=== PATIENT | male | born 1950 | race Caucasian/White ===

== ENCOUNTER 2016-07-19 03:33 | Inpatient (IN) | payer OTHER, MEDICARE ==
[~2016-07-19] VITALS: Ht 180.3 cm; Wt 79.4 kg
[~2016-07-19 03:33] MED LIST: ALTACE5 M2 PO; COUMADIN 5 MG TA5 MG PO; COUMADIN 7.5 M7.5 MG PO; COUMADIN7.5 M1 PO; DOCUSATE SODIU100 MG PO; FINASTERIDE1 MG PO; FLOMAX0.4 M1 PO; MELOXICAM15 M1 PO; OMEPRAZOLE20 M2 PO; PERCOCET 500 MG1 TAB PO; PRINIVIL10 M1 PO; TRAMADOL HCL50 M1 PO; TRICOR145 M1 PO
[2016-07-19 18:10] VITALS: BP 138/76
--- NOTE | 2016-07-19 19:09 | PN- Orthopedic ---
Subjective Subjective: Post op check Awake, alert Complaining of left thigh "aching" - relieved with posture change No nausea, tolerating diet Objective Vital Signs and I&Os vss, afebrile Physical Exam: General: alert and oriented times three chest: clear anteriorly bilaterally, RRR Abd: soft, good bs Ext: warm, no edema, no calf tenderness, ALPS in place, positive sensate, good strength ble Wound: dressed, dry Current Medications: Current Medications Sig/Refugio Start time Last Medication Dose Route Stop Time Status Admin Acetaminophen 650 MG Q4P PRN 07/19 1830 AC PO Al Hydroxide/Mg 30 ML Q6P PRN 07/19 1830 AC Hydroxide PO Dextrose/Lactated 1,000 ML Q13H 07/19 1830 AC Ringer's IV Docusate Sodium 100 MG DAILY NEEDED PRN 07/19 1830 AC PO Fenofibrate 145 MG DAILY 07/20 1000 AC PO Finasteride 5 MG DAILY 07/20 1000 UNVr PO Lisinopril 10 MG DAILY 07/20 1000 AC PO Morphine Sulfate 2 MG Q3P PRN 07/19 1830 AC IV Morphine Sulfate 4 MG Q3P PRN 07/19 1830 AC IV Omeprazole 20 MG DAILY AC 07/20 0700 AC PO Ondansetron HCl 4 MG Q6P PRN 07/19 1830 AC IV Oxycodone/ 1 TAB Q4P PRN 07/19 1830 AC Acetaminophen PO Oxycodone/ 2 TAB Q4P PRN 07/19 1830 AC Acetaminophen PO Polyethylene Glycol 17 GM DAILY NEEDED PRN 07/19 1830 AC PO Ropivacaine 500 ML ONCE ONE 07/19 1345 DC ON-Q Ball 1 BAG INJ 07/21 0724 Senna/Docusate Sodium 2 TAB AT BEDTIME NEED.. 07/19 1830 AC PO Tamsulosin HCl 0.4 MG DAILY 07/20 1000 AC PO Vancomycin HCl 1,000 MG ONCE ONE 07/20 0100 AC Dextrose/Water 250 ML IV 07/20 0159 Vancomycin HCl 1,000 MG ONCE 07/19 0000 DC Dextrose/Water 250 ML IV 07/19 2359 Warfarin Sodium 5 MG COUMADIN 1700 ONE 07/19 1700 DC PO 07/19 1701 Assessment/Plan Assessment/Plan 65 yo male s/p revision L TKR Pain mgmt On Q per anesthesia coumadin 5 mg ordered for dvt ppx PT - wbat regular diet pettit overnight Core Measures/Miscellaneous Pettit Catheter Date In: 07/19/16 Still Needed? Yes (24 hrs post op) Venous Thromboembolism VTE Risk Factors: Age > 40, Surgery VTE Contraindications: No Contraindications VTE Prophylaxis Ordered Inpt: Mech & Pharm VTE Diagnosis: No Beta Ynes Is Beta Ynes a Home Med? No Antibiotics Is Patient on Antibiotics? Yes If Yes: prophylaxis (24 hrs post op)
--- NOTE | 2016-07-19 20:06 | NUR ---
NURSING NOTE; LATE ENTRY; PT ARRIVED TO VIA STRETCHER FROM PACY AT 1810. PT A/OX3, 2LNC, DENIES CP, DENIES SOB, PT HAS +CMS, DSG C/D/I, WHITT IN PLACE DRAINING TO GRAVITY, ONQ PUMP TO L ADDUCTOR CANAL, DSG INTACT. ALPS IN PLACE. DENIES PAIN AND DENIES NAUSEA. WILL CONTINUE TO MONITOR.
[2016-07-19 23:59] VITALS: BP 150/70
[2016-07-20 02:02] VITALS: BP 160/80
--- NOTE | 2016-07-20 07:37 | PN- Orthopedic ---
See Addendum Subjective Subjective: The patient was seen this morning postoperatively day #1. He reports his pain is under adequate control and he has no other complaints at the current time. Objective Vital Signs and I&Os Vital Signs Date Time Temp Pulse Resp B/P Pulse O2 O2 Flow FiO2 Ox Delivery Rate 07/20 0202 99.5 95 19 160/80 91 Room Air 07/19 2359 98.6 95 18 150/70 94 Room Air 07/19 1810 98.0 98 20 138/76 96 Nasal 2.0L Cannula 07/19 181 96 Nasal 2.0L Cannula Intake & Output 07/20 0800 07/20 0000 07/19 1600 07/19 0800 07/19 0000 07/18 1600 Intake Total 840 825 Output Total 550 450 Balance 290 375 Intake, IV 600 225 Intake, Oral 240 600 Output, Urine 550 450 Patient 175 lb Weight Physical Exam: Gen.: Alert and obvious distress Skin: Warm and dry Extremities: Bilateral lower extremities are warm without calf tenderness or significant edema. Gross motor and sensory are intact. Left knee surgical dressing is clean, dry, and intact. His On-Q pump in place. Assessment/Plan Assessment/Plan Assessment: 66-year-old male status post revision of left total knee arthroplasty postoperative day 1. The patient is progressing as expected and his pain is well-controlled. Plan: Hep-Lock IV fluids and DC Heard catheter Follow-up morning laboratory studies and dose Coumadin for an INR between 2 and 3 Out of bed with physical therapy patient is weightbearing as tolerated GI and DVT prophylaxis Continue current pain regiment Core Measures/Miscellaneous Heard Catheter Date In: 07/19/16 Venous Thromboembolism VTE Risk Factors: Age > 40, Surgery VTE Contraindications: No Contraindications VTE Prophylaxis Ordered Inpt: [facility] VTE Diagnosis: No Beta Ynes Is Beta Ynes a Home Med? No Antibiotics Is Patient on Antibiotics? No
[2016-07-20 08:10] LABS: ABSOLUTE BASOPHIL COUNT 0 /CUMM (0.0-0.2); ABSOLUTE EOSINOPHIL COUNT 0 /CUMM (0.0-0.7); ABSOLUTE GRANULOCYTE CT 7.8 /CUMM (1.4-6.5); ABSOLUTE MONOCYTE COUNT 1.5 /CUMM (0.10-0.60); BASOPHIL % 0.2 % (0.0-2.0); EOSINOPHIL % 0 % (0-5); GRANULOCYTE % 76.3 % (42.2-75.2); MEAN CORPUSCULAR HGB 27.3 PG (27.0-31.0); MEAN CORPUSCULAR HGB CONC 33.5 G/DL (33.0-37.0); MEAN CORPUSCULAR VOLUME 81.3 FL (80.0-94.0); MEAN PLATELET VOLUME 8.5 FL (7.4-10.4); PLATELET COUNT 284 /CUMM (130-400); RBC DISTRIBUTION WIDTH 13.5 % (11.5-14.5); RED BLOOD CELL CT 3.93 /CUMM (4.70-6.10); WHITE BLOOD CELL COUNT 10.3 /CUMM (4.8-10.8)
[2016-07-20 08:17] LABS: PT 13.4 SEC (9.4-12.5)
[2016-07-20 08:23] VITALS: BP 166/70
[2016-07-20 09:05] VITALS: BP 152/80
[2016-07-20 12:47] VITALS: BP 152/76
--- NOTE | 2016-07-20 14:30 | NUR ---
NURSING NOTE: PT ASKING FOR PAIN MEDS, PERCOCET LAST GIVEN AT 1120AM, MORPHINE LAST AT 1230PM. CHARLA CORDON CALLED AND AWARE, OK TO GIVE PEROCET AT THIS TIME. PEROCET GIVEN, ICE PACK GIVEN. CONT TO MONITOR
[2016-07-20 15:56] VITALS: BP 178/98
[2016-07-20 16:51] VITALS: BP 172/90
[2016-07-21 00:08] VITALS: BP 172/96
[2016-07-21] MEDS ORDERED: PERCOCET 5-3251 EACH PO (05:44)
[2016-07-21] MEDS ORDERED: COLACE100 M1 PO (05:44)
--- NOTE | 2016-07-21 05:47 | Discharge Summary ---
See Addendum Visit Information Visit Dates Admission Date: 07/19/16 Discharge Date: 07/22/16 Hospital Course Course Attending Phys[facility] Primary Care Physician: ZA WALLACE,[facility] Course: Patient admitted to floor following procedure below. Patient ambulated with PT upon arrival to the floor. Patient continued to progress well. Upon discharge patient is afebrile, tolerating diet, pain controlled, ambulating well with rolling walker and PT. Complications: None Allergies: Coded Allergies: NO KNOWN ALLERGIES (07/12/16) Significant Procedures: 07/19/16 revision of left total knee replacement Disposition Summary Disposition Principal Diagnosis: Left knee pain Additional Diagnosis: None Discharge Disposition: home health services Discharge Instructions General Discharge Information Code Status: Full Code Patient's Diet: Resume normal diet Patient's Activity: Weight-bearing as tolerated Daily physical therapy Follow-Up Instructions/Appts: Call office to schedule/confirm appointment Medications at Discharge Discharge Medications: Stop taking the following medications: Meloxicam (Meloxicam) 15 MG TABLET ORAL DAILY Tramadol HCl (Tramadol HCl) 50 MG TABLET ORAL as needed for PAIN Continue taking these medications: Ramipril (Altace) 5 MG CAPSULE 1 Capsule ORAL DAILY Omeprazole (Omeprazole) 20 MG CAPSULE.DR 1 Capsule ORAL DAILY Fenofibrate Nanocrystallized (Tricor) 145 MG TABLET 1 Tablet ORAL DAILY Finasteride (Finasteride) 1 MG TABLET 1 Tablet ORAL DAILY Warfarin Sodium (Coumadin) 7.5 MG TABLET 1 Tablet ORAL 5 PM Lisinopril (Prinivil) 10 MG TABLET 1 Tablet ORAL DAILY Tamsulosin HCl (Flomax) 0.4 MG CAP.ER.24H 1 Capsule ORAL DAILY Start taking the following new medications: Oxycodone HCl/Acetaminophen (Percocet 5-325 MG Tablet) 5 MG-325 MG TABLET 1-2 Tablet ORAL EVERY 4-6 HOURS as needed for PAIN Qty = 36 No Refills Docusate Sodium (Colace) 100 MG CAPSULE 1 Capsule ORAL TWICE DAILY as needed for CONSTIPATION Qty = 30 No Refills Copies To: ZA WALLACEDENEEN
--- NOTE | 2016-07-21 05:49 | Patient Discharge Instructions ---
Discharge Instructions General Discharge Information You were seen/treated for: Left knee pain You had these procedures: 07/19/16 vision a left total knee arthroplasty Watch for these problems: Redness, swelling, fever, signs of infection. Uncontrolled pain, Excessive bleeding. Decreased range of motion or unable to bear weight. Chest pain, shortness of breath. Call Surgeon to remove: Esha, Stitches (14 DAYS) Do not soak the wound: Yes No bath, but you may shower: Yes Diet Continue normal diet: Yes Activity Activity Self Limited: Yes Activity Limited to: Weight bear as tolerated Additional ACTIVITY Info: Daily physical therapy Acute Coronary Syndrome Inclusion Criteria At DC or during hospital stay patient has or had the following: ACS DIAGNOSIS No Discharge Core Measures Meds if any: Prescribed or Continued at Discharge Meds if any: NOT Prescribed or Continued at Discharge Congestive Heart Failure Inclusion Criteria At DC or during hospital stay patient has or had the following: CHF DIAGNOSIS No Discharge Core Measures Meds if any: Prescribed or Continued at Discharge Meds if any: NOT Prescribed or Continued at Discharge Cerebrovascular accident Inclusion Criteria At DC or during hospital stay patient has or had the following: CVA/TIA Diagnosis No Discharge Core Measures Meds if any: Prescribed or Continued at Discharge Meds if any: NOT Prescribed or Continued at Discharge Venous thromboembolism Inclusion Criteria VTE Diagnosis No VTE Type NONE VTE Confirmed by (Test) NONE Discharge Core Measures - Per Current guidelines, there needs to be overlap - treatment for the first 5 days of Warfarin therapy. - If discharged on Warfarin prior to 5 days of - overlap therapy, the patient will need to be - assessed for post discharge needs including - *Post discharge parental anticoagulation - *Warfarin and/or parental anticoagulation education - *Follow up date to check INR post discharge At least 5 days overlap therapy as Inpatient No Meds if any: Prescribed or Continued at Discharge Note: Overlap Therapy is Warfarin and Anticoagulant Meds if any: NOT Prescribed or Continued at Discharge
--- NOTE | 2016-07-21 07:08 | PN- Orthopedic ---
Subjective Subjective: The patient was seen this morning postoperatively day #2. He reports his pain is under adequate control and has no other complaints at the current time. Objective Vital Signs and I&Os Vital Signs Date Time Temp Pulse Resp B/P Pulse O2 O2 Flow FiO2 Ox Delivery Rate 07/21 0008 97.2 106 20 172/96 96 Room Air 07/20 1651 172/90 07/20 1556 99.5 99 19 178/98 96 07/20 1247 98.0 80 20 152/76 97 Room Air 07/20 1043 Room Air 2.0L 07/20 0905 68 150/82 07/20 0905 80 152/80 07/20 0823 98.4 95 18 166/70 96 Room Air Intake & Output 07/21 0800 07/21 0000 07/20 1600 07/20 0800 07/20 0000 07/19 1600 Intake Total 750 925 840 825 Output Total 450 650 550 450 Balance 300 275 290 375 Intake, IV 75 600 225 Intake, Oral 750 850 240 600 Number 0 Bowel Movements Output, Urine 450 650 550 450 Patient 175 lb Weight Physical Exam: Gen.: Alert and obvious distress Skin: Warm and dry Extremities: Bilateral lower extremities are warm without calf tenderness or significant edema. Gross motor and sensory are intact. Left knee surgical dressing was changed and incision was clean and intact without signs of infection. Assessment/Plan Assessment/Plan Assessment: 65-year-old male status post revision of left total knee arthroplasty postoperative day #2. The patient is progressing as expected and his pain is under adequate control. Plan: Follow-up morning laboratory results and dose Coumadin for an INR between 2 and 3 Out of bed with physical therapy Continue current pain regiment Daily dry dressing changes Continue bowel regiment GI and DVT prophylaxis Core Measures/Miscellaneous Heard Catheter Date In: 07/19/16 Venous Thromboembolism VTE Risk Factors: Age > 40, Surgery VTE Contraindications: No Contraindications VTE Prophylaxis Ordered Inpt: Mech & Pharm VTE Diagnosis: No Beta Ynes Is Beta Ynes a Home Med? No Antibiotics Is Patient on Antibiotics? No
[2016-07-21 07:43] LABS: ABSOLUTE BASOPHIL COUNT 0.1 /CUMM (0.0-0.2); ABSOLUTE EOSINOPHIL COUNT 0 /CUMM (0.0-0.7); ABSOLUTE GRANULOCYTE CT 7.7 /CUMM (1.4-6.5); ABSOLUTE LYMPH COUNT 0.8 /CUMM (1.2-3.4); ABSOLUTE MONOCYTE COUNT 1.3 /CUMM (0.10-0.60); BASOPHIL % 0.5 % (0.0-2.0); EOSINOPHIL % 0.2 % (0-5); GRANULOCYTE % 78.1 % (42.2-75.2); MEAN CORPUSCULAR HGB 26.7 PG (27.0-31.0); MEAN CORPUSCULAR HGB CONC 33.2 G/DL (33.0-37.0); MEAN CORPUSCULAR VOLUME 80.4 FL (80.0-94.0); MEAN PLATELET VOLUME 8.4 FL (7.4-10.4); PLATELET COUNT 306 /CUMM (130-400); RBC DISTRIBUTION WIDTH 13.6 % (11.5-14.5); RED BLOOD CELL CT 4.35 /CUMM (4.70-6.10); WHITE BLOOD CELL COUNT 9.9 /CUMM (4.8-10.8)
[2016-07-21 08:07] VITALS: BP 158/90
[2016-07-21 08:22] LABS: PT 15.1 SEC (9.4-12.5)
--- NOTE | 2016-07-21 08:34 | NUR ---
NURSING NOTE: PT LEFT FLOOR VIA STRETCHR WITH DFISTRIBUTION FOR FOLLOW UP KNEE XRAY PT AWAKE, A/OX3, ROOM AIR, MEDICATED WITH PERCET TICKET TO RIDE COMPLETE, CHART SENT WITH PT. AWAIT RETURN TO FLOOR.
--- NOTE | 2016-07-21 09:01 | NUR ---
NURSING NOTE: PT BACK TO FLOOR VIA STRETCHER WITH DISTRBUTION FROM XRAY, PT AWAKE, A/OX3, PHYSICAL THERAPY TO WORK WITH PT NOW, CONT TO MONITOR.
--- NOTE | 2016-07-21 09:05 | RADIOLOGY REPORT ---
EXAMINATION: XR KNEE, LEFT CLINICAL INFORMATION: Status post left total knee arthroplasty revision. COMPARISON: Left knee radiographs 10/04/2013. TECHNIQUE: Four views of the left knee. FINDINGS: There are expected postoperative changes related to the revision of a total left knee arthroplasty. Hardware is intact. No evidence of prosthetic fracture. Alignment is normal. No dislocation. IMPRESSION: Expected postoperative changes related to the revision of a left total knee arthroplasty. No dislocation.
[2016-07-21 15:48] VITALS: BP 122/74
[2016-07-22 00:48] VITALS: BP 128/72
--- NOTE | 2016-07-22 07:25 | PN- Orthopedic ---
Subjective Subjective: The patient seen this morning postoperatively day #3. He reports that his pain is under adequate control has no other complaints at the current time. Objective Vital Signs and I&Os Vital Signs Date Time Temp Pulse Resp B/P Pulse O2 O2 Flow FiO2 Ox Delivery Rate 07/22 0048 98.7 103 19 128/72 95 Room Air 07/21 1548 98.7 108 19 122/74 96 Room Air 07/21 0814 158/90 07/21 0807 99.3 98 20 158/90 98 Room Air Intake & Output 07/22 0800 07/22 0000 07/21 1600 07/21 0800 07/21 0000 07/20 1600 Intake Total 1020 810 750 925 Output Total 650 1000 450 650 Balance 1020 160 -1000 300 275 Intake, IV 20 10 75 Intake, Oral 1000 800 750 850 Number 1 0 Bowel Movements Output, Urine 650 1000 450 650 Physical Exam: Gen.: Alert and obvious distress Skin: Warm and dry Extremities: Bilateral lower extremities are warm without calf tenderness or significant edema. Gross motor and sensory are intact. Left knee surgical dressing is clean, dry, and intact. Assessment/Plan Assessment/Plan Assessment: 66-year-old male status post left revision total knee arthroplasty postoperative day #3. The patient is progressing as expected and his pain is under adequate control. Plan: Out of bed with physical therapy Follow-up morning laboratory studies and we dose Coumadin to reach an INR between 2 and 3 Continue current pain regiment Daily dry dressing change Discharge to short-term rehabilitation today Core Measures/Miscellaneous Heard Catheter Date In: 07/19/16 Venous Thromboembolism VTE Risk Factors: Age > 40, Surgery VTE Contraindications: No Contraindications VTE Prophylaxis Ordered Inpt: Mech & Pharm VTE Diagnosis: No Beta Ynes Is Beta Ynes a Home Med? No Antibiotics Is Patient on Antibiotics? No
[2016-07-22 07:57] VITALS: BP 140/78
[2016-07-22 08:40] VITALS: BP 140/70
--- NOTE | 2016-07-23 11:08 | Operative Report ---
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 Synovitis left knee Post-Operative Diagnosis: Same with final/micro-pathology pending Estimated Blood Loss: less than 50ml Surgeon/Target Protection Specialist: FERNANDO WALLACE,Yohannes SANTILLAN PA Anesthesia: laryngeal mask airway Implants: Size 4 posterior stabilized left femoral component with 100 cm stem 10 mm augment distal lateral femur and posterior femur 5 mm medial augments 13 mm posterior stabilized polyethylene Drains: None Specimens: Membrane under femoral component, synovial fluid Microbiology: Synovial fluid, urinalysis Tourniquet: 117 minutes Complications: None Condition: Stable Operative Indication: Patient is a 66-year-old man who underwent left total knee arthroplasty [place] [address] Fried. Most recently he has developed a mechanical clicking sensation involving the left knee. This was associated with no pain initially but then patient developed more instability of the knee and a valgus overall alignment with weightbearing. His evaluation revealed a fairly large effusion and possible loosening of the left femoral component. Patient was referred for my evaluation. Findings were most consistent with loosening of the left femoral component area previously, he had aspiration and culture of the fluid. He also had bone scan evaluation. There was no definite sign of infection but there were signs of loosening of the femoral component. Due to ongoing problems with the left knee patient was advised to consider revision of the total knee arthroplasty. We discussed the possibility that the femoral component would be revised as well as the possibility of the complete total knee arthroplasty being revised depending on intraoperative findings. There was also a possibility of explantation and insertion of antibiotic cement spacer if there were any signs of infection found during the surgical procedure. Patient wished to proceed with surgical management of the problem. Risks, benefits and expectations of surgery which included but were not limited to persistent knee pain, need for subsequent surgery, infection, injury to blood vessel or nerve, anesthesia risks , DVT were discussed and patient wished to proceed. Operative/Procedure Note Note: The patient was brought to the operating room and transferred to the operating table. Once under appropriate anesthesia the left lower extremity was prepped and draped in standard fashion. Prior to prepping and draping I did aspirate the left knee. Patient's preoperative flexion to gravity was only 80. There was gross instability to varus and valgus stress. Patient did go into significant valgus alignment with stress. There was crepitus to range of motion. Poor patellofemoral tracking most likely due to the deforming alignment. Approximately 30 mL of blood-tinged synovial fluid was aspirated and sent for stat Gram stain. Preoperative IV antibiotic's were given prophylactically. A standard anterior incision was made through the previous incision. Incision was taken down sharply to the underlying retinaculum. A medial retinacular approach with extension into the quadriceps tendon medially was used to enter the joint. Remainder of the effusion was evacuated. There were signs of chronic synovial hypertrophy. There was clearly a grossly loose left femoral component. After some manipulation the component was removed. The underlying membrane underneath the femoral prosthesis was sent for stat frozen section for number of white cells per high-powered field. I then completed the debridement of the distal femur. There was a significant amount of bone loss on the medial and lateral side but the lateral was more impressive posteriorly and distally. The tibial component appeared to be solid. There was no evidence of loosening or osteo lysis underneath the prosthesis. There was still a possibility that the tibial component would need to be removed if we had to advance to a totally stabilized polyethylene component and femoral component. Therefore I focused my attention on the distal femur. I used the drill to enter the distal femur serial reamers were used up to a size 16. The last reamer was left in place and the distal femoral cutting guide was pinned in place for a 6 valgus cut care was taken to remove the least amount of bone tissue and to freshen up the surfaces. Clearly the lateral side would need to be augmented but the medial side appeared to be deficient as well. I measured the deficit laterally to be about 10 mm and medially 5 mm. At the distal cut was made I applied the cutting jig for the chamfer cuts. Cuts were made while protecting the soft tissues. Again augments were chosen including 10 mm augment posterior on the lateral side and 5 on the medial side. The component was constructed on the back table and the trial component was impacted in place. I was satisfied with the position and fit of this size 4 stemmed and augmented component. I did downsize to a size 14 stem to make the insertion somewhat and is here especially since her appeared to be some tightness anteriorly. Also I optimized this by offsetting anteriorly especially after determining that there would be slight asymmetry and the extension gap and flexion gap with the flexion gap Being slightly smaller than the extension gap. I was satisfied with the stability of this construct and therefore I was able to use a posterior stabilized component instead of having to revise the tibia and using a total stabilized component. The type of tibia the patient had in place would only accept a PCL retaining or PCL stabilized knee and not a TS component. All trial components were removed. Copious irrigation of the knee followed. I evaluated the patella as well. I did debride some synovitis circumferentially around the patella. There was no abnormal wear on the patella. No evidence of abnormalities at the junction of the cement mantle and bone or the polyethylene. Copious irrigation continued. Cement was being mixed on the back table as the definitive prosthesis was being constructed. Antibiotic impregnated Cement was applied to the femoral surfaces. The definitive size 4 posterior cruciate substituting femoral component with the augments was impacted in place. I was satisfied with the fit. Excess cement was removed with curettes. I applied the trial 13 mm polyethylene component and then placed the leg into full extension as the cement hardened. Once the cement was hardening took the knee through range of motion. I did oren articular/pericapsular injection of a cocktail which included Toradol and ropivacaine with epinephrine. Small pieces of excess cement were removed with osteotome. Copious irrigation the tibial tray followed. I was satisfied with the stability in full extension mid flexion and full flexion to gravity. Soft tissue envelope appeared to be intact. Flexion to gravity was to approximately 115 which was much greater than his preoperative flexion. Copious irrigation continued throughout the procedure and continued at every level of closure after the tourniquet was inflated deflated at 117 minutes. Hemostasis was obtained. No need for a drain. The closure of the retinaculum was done with #1 Vicryl. Subcutaneous tissues closed in 2 layers with 2-0 Vicryl and skin was closed with a running 3-0 Vicryl suture with the knee in flexion. Should mention that during the procedure we received word from pathology department that revealed a very small number of white blood cells per high-powered field and therefore we were confident in proceeding with the revision knee replacement and that there was less likely an occult infection. The final pathology and microbiology results would be pending in several days. Discharge Disposition: PACU
== END 2016-07-22 11:22 | DRG 468 ==
LOC: ENRESERVDT → ENRESERVTM → 2NB 03:33 → PACUH 03:33 → SDA 03:33 → ENPENDDIS 03:33 → SDA 07:00 → PACUH 16:21 → 2NB 18:04
PROVIDERS: Physician Assistant; Physician Assistant Surgical; ADMIT Orthopaedic Surgery
PROC: 0SRD0J9 Replacement of Left Knee Joint with Synthetic Substitute, Cemented, Open Approach (ICD-10-PCS; principal; 2016-07-19)
PROC: 0SPD0JZ Removal of Synthetic Substitute from Left Knee Joint, Open Approach (ICD-10-PCS; 2016-07-19)
DX: T84.033A Mechanical loosening of internal left knee prosthetic joint, initial encounter (principal); I10 Essential (primary) hypertension; M65.9 Synovitis and tenosynovitis, unspecified; E78.5 Hyperlipidemia, unspecified; N40.0 Benign prostatic hyperplasia without lower urinary tract symptoms; K21.9 Gastro-esophageal reflux disease without esophagitis
CPT/HCPCS: 2NBSP; 87075; 36415; 73560-LT; 82436; 87086; 88305; 88331; 97110-GO; 97116-GO; 97161-GP; 97530-GO; C1713; EXP; J0131; J0171; J1885; J2405; J2795; J3370; J7060